=== PATIENT | male | born 1995 | race Two or more races ===

== ENCOUNTER → 2025-02-27 | Day surgery (SDC) | payer MEDICAID ==
[~2025-02-27] VITALS: Ht 170.2 cm; Wt 89.4 kg
[~2025-02-27] MED LIST: HYDROmorphone HCL 2 MG/ML VL/or syr IV PRN; KETOROLAC TROMETH 30 MG/ML 1ML VIAL IV ONE; MIDAZOLAM HCL 2MG/2ML 2ml VIAL (1mg/ml) IV PRN; MIDAZOLAM HCL 2MG/2ML 2ml VIAL (1mg/ml) ONE; MORPHINE SULFATE 4 MG/ML SYR/VIAL IV PRN; ONDANSETRON HCL 4 MG/2 ML VIAL IV PRN; PROPOFOL 10 MG/ML 20 ML IV ONE; ceFAZolin 2 GM/D5W50ml 50 ML IV ONE; hydrALAZINE HCL 20 MG/ML VL IV PRN
[2025-02-27 10:45] VITALS: PULSE 65; RESP 12; TEMP 97.4; O2SAT 100
--- NOTE | 2025-02-27 10:52 | DVHOP2 ---
Operative Report - 2 Report Details Date: 02/27/25 Preop Diagnosis: Left knee contracture Postop Diagnosis: Left knee contracture Surgeon: Jona Mcelroy MD Document Advisor: Vita AREVALO Anesthesiologist: Yen Anesthesia: General Consent: The patient was informed of the risks and benefits of the procedure. These include but are not limited to complications of anesthesia, postoperative infection, incomplete relief of symptoms, recurrence of symptoms, damage to blood vessels, nerves and tendons, deep venous thrombosis, pulmonary embolism and possible need for repeat surgery in the future. Complications: None Estimated Blood Loss: None Fluids: See anesthesia record Findings: Range of motion 0-90 degrees s/p ACL reconstruction, negative Leticia, no effusion, wounds well healed Indications for Surgery: Left knee contracture despite adequate period of physical therapy. Name of Procedure Performed Left knee manipulation under anesthesia Procedure Details Procedure Details: Patient was brought to the operating room and placed on the table in supine position. General anesthetic was given. Surgical time-out was performed verifying patient, laterality, and procedure. I 1st did an examination verifying the range of motion as well as the stability. I then forcefully flex the knee to full flexion with audible tearing noted. Postop range of motion was 0-135. Patient tolerated the procedure well was brought to recovery room in stable condition. Condition Stable Disposition Home JONA MCELROY MD Feb 27, 2025 10:51
[2025-02-27 11:15] VITALS: BP 119/87; PULSE 62; RESP 12; O2SAT 97
== END | disposition home or self-care (01) ==
LOC: SUR 09:36
PROVIDERS: ATTEND Orthopaedic Surgery
DX: M24.562 Contracture, left knee (principal); Z98.890 Other specified postprocedural states
CPT/HCPCS: 27570; J0690; J2250; J2704